=== PATIENT | male | born 1960 | race African-American/Black ===

== ENCOUNTER 2019-07-01 10:32 | Outpatient (CLI) | payer MEDICAID ==
[2019-07-01 12:29] LABS: BASOPHILS # (AUTO) 0.1 10^3/uL (0.0-0.1); BASOPHILS % (AUTO) 1.1 %; EOSINOPHILS # (AUTO) 0.3 10^3/uL (0.0-0.7); EOSINOPHILS % (AUTO) 4.7 %; HGB - HEMOGLOBIN 13.3 g/dL (14.0-18.0); LYMPHOCYTES % (AUTO) 27.6 %; MEAN CORPUSCULAR HEMOGLOBIN 32.7 pg (27.0-31.0); MEAN CORPUSCULAR HGB CONC 33.5 g/dL (32.0-36.0); MEAN CORPUSCULAR VOLUME 97.5 fL (80.0-94.0); MEAN PLATELET VOLUME 9.1 fL (7.4-11.4); MONOCYTES # (AUTO) 0.7 10^3/uL (0.0-1.0); MONOCYTES % (AUTO) 9.6 %; NEUTROPHILS # (AUTO) 4.1 10^3/uL (1.5-6.6); NEUTROPHILS % (AUTO) 56.7 %; PLT - PLATELET COUNT 251 10^3/uL (130-450); RED BLOOD COUNT 4.07 10^6/uL (4.70-6.10); WHITE BLOOD COUNT 7.2 x10^3/uL (4.8-10.8)
[2019-07-01 12:49] LABS: HB2 TOTAL 13.6 g/dL; HEMOGLOBIN A1C 0.57 g/dL
[2019-07-01 12:58] LABS: ALBUMIN 4.1 g/dL (3.2-5.5); ALBUMIN/GLOBULIN RATIO 1.1 (1.0-2.2); ALKALINE PHOSPHATASE 36 IU/L (42-121); ALT ALANINE AMINOTRANSFERASE 26 IU/L (10-60); AST ASPARTATE AMINOTRANSFERASE 34 IU/L (10-42); BILIRUBIN,TOTAL 1.1 mg/dL (0.2-1.0); BUN - BLOOD UREA NITROGEN 12 mg/dL (6-20); CALCIUM 9.1 mg/dL (8.5-10.3); CARBON DIOXIDE - CO2 27 mmol/L (21-32); CHLORIDE 103 mmol/L (101-111); CHOL/HDL RATIO 2.9 (<5.0); CHOLESTEROL 131 mg/dL; CREATININE 0.9 mg/dL (0.6-1.2); GFR - MDRD 104 (>89); GLUCOSE 120 mg/dL (70-100); HDL CHOLESTEROL 45 mg/dL; LDL CHOLESTEROL,CALCULATED 60 mg/dL; LDL/HDL RATIO 1.3 (<3.6); SODIUM 138 mmol/L (135-145); TOTAL PROTEIN 7.9 g/dL (6.7-8.2); VLDL CHOLESTEROL 26 mg/dL
== END 2019-07-01 23:59 | disposition home or self-care (01) ==
LOC: LAB.N 10:32
PROVIDERS: ATTEND Family Medicine
DX: I10 Essential (primary) hypertension (principal); Z13.1 Encounter for screening for diabetes mellitus; Z12.5 Encounter for screening for malignant neoplasm of prostate
CPT/HCPCS: 36415; 80053; 80061; 83036; 83721; 84153; 84443; 85025

== ENCOUNTER 2019-07-28 09:44 | Outpatient (CLI) | payer MEDICAID ==
[2019-07-28 12:34] LABS: ABSOLUTE RETICS # AUTO 0.091 10^6/uL (0.020-0.110); BASOPHILS # (AUTO) 0.1 10^3/uL (0.0-0.1); BASOPHILS % (AUTO) 0.9 %; EOSINOPHILS # (AUTO) 0.3 10^3/uL (0.0-0.7); EOSINOPHILS % (AUTO) 3.4 %; HGB - HEMOGLOBIN 14.1 g/dL (14.0-18.0); LYMPHOCYTES % (AUTO) 24.8 %; MEAN CORPUSCULAR HEMOGLOBIN 32.9 pg (27.0-31.0); MEAN CORPUSCULAR HGB CONC 33.6 g/dL (32.0-36.0); MEAN CORPUSCULAR VOLUME 97.9 fL (80.0-94.0); MEAN PLATELET VOLUME 9.2 fL (7.4-11.4); MONOCYTES # (AUTO) 0.6 10^3/uL (0.0-1.0); NEUTROPHILS % (AUTO) 62.6 %; PLT - PLATELET COUNT 265 10^3/uL (130-450); RED BLOOD COUNT 4.29 10^6/uL (4.70-6.10); RED CELL DISTRIBUTION WIDTH 13.6 % (12.0-15.0)
[2019-07-28 13:01] LABS: % IRON SATURATION 20 % (20-50); IRON 72 ug/dL (45-182); TOTAL IRON BINDING CAPACITY 351 ug/dL (250-450); TRANSFERRIN 251 mg/dL (180-329)
[2019-07-28 13:14] LABS: FERRITIN 125.2 ng/mL (23.9-336.2)
== END 2019-07-28 23:59 | disposition home or self-care (01) ==
LOC: LAB.N 09:44
PROVIDERS: ATTEND Family Medicine
DX: D64.9 Anemia, unspecified (principal)
CPT/HCPCS: 36415; 82607; 82728; 82746; 83540; 84466; 85025; 85045

== ENCOUNTER 2019-10-18 08:00 | Outpatient (CLI) | payer MEDICAID | END 2019-10-18 23:59 | disposition home or self-care (01) | LOC: LAB.R 08:00 | PROVIDERS: ATTEND Family Medicine | DX: J06.9 Acute upper respiratory infection, unspecified (principal) | CPT/HCPCS: 87275; 87276 ==

== ENCOUNTER 2019-12-06 12:40 | Outpatient (CLI) | payer MEDICAID ==
--- NOTE | 2019-12-06 14:39 | XRAY Report ---
Reason: KNEE JOINT PAIN,RIGHT Procedure Date: 12/06/2019 Accession Number: [id number] / [id number] Procedure: XR - Knee 3 View RT CPT Code: Final Report FULL RESULT: EXAM: RIGHT KNEE RADIOGRAPHY EXAM DATE: 12/06/2019 12:47 PM. CLINICAL HISTORY: Chronic progressive right knee joint pain. COMPARISON: None. TECHNIQUE: 3 views. FINDINGS: Bones: Normal bone mineralization. No fracture. Joints: Genu varum. Medial knee joint compartment narrowing with subchondral sclerosis and marginal osteophyte formation. Subchondral cyst formation is present as well. There is a moderate suprapatellar right knee joint effusion. No subluxation. Soft Tissues: Arteriosclerosis. No appreciable soft tissue swelling. IMPRESSION: 1. Moderate to severe medial knee joint compartment osteoarthritis with genu varum. 2. Moderate suprapatellar right knee joint osteoarthritis with a moderate suprapatellar right knee joint effusion. 3. Arteriosclerosis. RADIA
== END 2019-12-06 12:41 | disposition home or self-care (01) ==
LOC: DI 12:40
PROVIDERS: ATTEND Family Medicine
DX: M17.11 Unilateral primary osteoarthritis, right knee (principal); M25.461 Effusion, right knee; I70.90 Unspecified atherosclerosis

== ENCOUNTER 2020-02-24 15:38 | Outpatient (CLI) | payer MEDICAID ==
[2020-02-24 16:13] LABS: BASOPHILS # (AUTO) 0.1 10^3/uL (0.0-0.1); EOSINOPHILS # (AUTO) 0.4 10^3/uL (0.0-0.7); EOSINOPHILS % (AUTO) 3.9 %; HGB - HEMOGLOBIN 13.9 g/dL (14.0-18.0); LYMPHOCYTES # (AUTO) 2.4 10^3/uL (1.5-3.5); LYMPHOCYTES % (AUTO) 26.7 %; MEAN CORPUSCULAR HEMOGLOBIN 33.4 pg (27.0-31.0); MEAN CORPUSCULAR HGB CONC 34.3 g/dL (32.0-36.0); MEAN CORPUSCULAR VOLUME 97.4 fL (80.0-94.0); MEAN PLATELET VOLUME 8.8 fL (7.4-11.4); MONOCYTES # (AUTO) 0.9 10^3/uL (0.0-1.0); MONOCYTES % (AUTO) 9.4 %; NEUTROPHILS # (AUTO) 5.3 10^3/uL (1.5-6.6); NEUTROPHILS % (AUTO) 58.6 %; PLT - PLATELET COUNT 242 10^3/uL (130-450); RED BLOOD COUNT 4.16 10^6/uL (4.70-6.10); RED CELL DISTRIBUTION WIDTH 13.7 % (12.0-15.0)
[2020-02-24 16:26] LABS: ALBUMIN 4.3 g/dL (3.2-5.5); ALBUMIN/GLOBULIN RATIO 1.1 (1.0-2.2); ALKALINE PHOSPHATASE 39 IU/L (42-121); ALT ALANINE AMINOTRANSFERASE 25 IU/L (10-60); AST ASPARTATE AMINOTRANSFERASE 28 IU/L (10-42); BILIRUBIN,TOTAL 0.9 mg/dL (0.2-1.0); BUN - BLOOD UREA NITROGEN 19 mg/dL (6-20); CALCIUM 9.3 mg/dL (8.5-10.3); CARBON DIOXIDE - CO2 27 mmol/L (21-32); CHLORIDE 102 mmol/L (101-111); CHOL/HDL RATIO 3.3 (<5.0); CHOLESTEROL 156 mg/dL; CREATININE 1.1 mg/dL (0.6-1.2); GLUCOSE 109 mg/dL (70-100); HDL CHOLESTEROL 48 mg/dL; LDL CHOLESTEROL,CALCULATED 30 mg/dL; LDL/HDL RATIO 0.6 (<3.6); SODIUM 136 mmol/L (135-145); TOTAL PROTEIN 8.1 g/dL (6.7-8.2); VLDL CHOLESTEROL 78 mg/dL
[2020-02-24 16:28] LABS: CREATINE KINASE MB 9.8 ng/mL (0.6-6.3)
--- NOTE | 2020-02-26 02:51 | XRAY Report ---
Reason: CHEST PAIN Procedure Date: 02/24/2020 Accession Number: [id number] / [id number] Procedure: XR - Chest 2 View X-Ray CPT Code: 01453 Final Report FULL RESULT: EXAM: CHEST RADIOGRAPHY EXAM DATE: 02/24/2020 04:06 PM CLINICAL HISTORY: CHEST PAIN. COMPARISON: None. TECHNIQUE: 2 views. FINDINGS: Lungs/Pleura: Clear lungs. No pleural effusion. No pneumothorax. Mediastinum: Within exam limitations, the cardiomediastinal contour is unremarkable. Normal heart size. Mildly calcified thoracic aorta. Other: Right acromioclavicular arthropathy. IMPRESSION: Unremarkable 2-view chest radiography. RADIA
== END 2020-02-24 15:39 | disposition home or self-care (01) ==
LOC: DI 15:38
PROVIDERS: ATTEND Family Medicine
DX: R07.9 Chest pain, unspecified (principal)
CPT/HCPCS: 36415; 71046; 80053; 80061; 82553; 83721; 84443; 84484; 85025; 85379

== ENCOUNTER 2020-03-26 08:00 | Outpatient (CLI) | payer MEDICAID ==
[2020-03-26 18:01] LABS: HGB - HEMOGLOBIN 13.5 g/dL (14.0-18.0); MEAN CORPUSCULAR HEMOGLOBIN 33.4 pg (27.0-31.0); MEAN CORPUSCULAR HGB CONC 33.4 g/dL (32.0-36.0); MEAN PLATELET VOLUME 9.4 fL (7.4-11.4); RED BLOOD COUNT 4.04 10^6/uL (4.70-6.10); RED CELL DISTRIBUTION WIDTH 13.8 % (12.0-15.0); WHITE BLOOD COUNT 8.9 x10^3/uL (4.8-10.8)
[2020-03-26 18:19] LABS: CALCIUM 8.8 mg/dL (8.5-10.3)
== END 2020-03-26 23:59 | disposition home or self-care (01) ==
LOC: LAB.WCP 08:00
PROVIDERS: ATTEND Family Medicine
DX: R07.9 Chest pain, unspecified (principal)
CPT/HCPCS: 36415; 80048; 83880; 85027

== ENCOUNTER 2020-05-30 08:00 | Outpatient (CLI) | payer MEDICAID ==
[2020-05-30 18:56] LABS: BASOPHILS # (AUTO) 0.1 10^3/uL (0.0-0.1); BASOPHILS % (AUTO) 0.8 %; EOSINOPHILS # (AUTO) 0.2 10^3/uL (0.0-0.7); EOSINOPHILS % (AUTO) 2.4 %; HGB - HEMOGLOBIN 13.8 g/dL (14.0-18.0); LYMPHOCYTES # (AUTO) 2.3 10^3/uL (1.5-3.5); LYMPHOCYTES % (AUTO) 24.5 %; MEAN CORPUSCULAR HEMOGLOBIN 32.8 pg (27.0-31.0); MEAN CORPUSCULAR HGB CONC 32.9 g/dL (32.0-36.0); MEAN CORPUSCULAR VOLUME 99.8 fL (80.0-94.0); MEAN PLATELET VOLUME 9.5 fL (7.4-11.4); MONOCYTES # (AUTO) 0.8 10^3/uL (0.0-1.0); MONOCYTES % (AUTO) 8.4 %; NEUTROPHILS # (AUTO) 5.9 10^3/uL (1.5-6.6); NEUTROPHILS % (AUTO) 63.4 %; PLT - PLATELET COUNT 238 10^3/uL (130-450); RED BLOOD COUNT 4.21 10^6/uL (4.70-6.10); RED CELL DISTRIBUTION WIDTH 14.6 % (12.0-15.0); WHITE BLOOD COUNT 9.2 x10^3/uL (4.8-10.8)
[2020-05-30 19:04] LABS: ALBUMIN 4.4 g/dL (3.2-5.5); ALBUMIN/GLOBULIN RATIO 1.2 (1.0-2.2); BILIRUBIN,TOTAL 0.6 mg/dL (0.2-1.0); CALCIUM 9.4 mg/dL (8.5-10.3); TOTAL PROTEIN 8.1 g/dL (6.7-8.2)
== END 2020-05-30 23:59 | disposition home or self-care (01) ==
LOC: LAB.WCP 08:00
PROVIDERS: ATTEND Nurse Practitioner Family
DX: R06.09 Other forms of dyspnea (principal)
CPT/HCPCS: 36415; 80053; 83880; 85025

== ENCOUNTER 2020-05-30 11:49 | Outpatient (CLI) | payer MEDICAID ==
--- NOTE | 2020-05-30 16:33 | XRAY Report ---
PROCEDURE: Chest 2 View X-Ray INDICATIONS: EXERTIONAL SHORTNESS OF BREATH TECHNIQUE: 2 view(s) of the chest. COMPARISON: 02/24/2020. FINDINGS: Surgical changes and devices: None. Lungs and pleura: No pleural effusions or pneumothorax. Lungs are clear. Mediastinum: Mediastinal contours are normal. Heart size is normal. Bones and chest wall: No suspicious bony abnormalities. Thoracic spine degenerative disc disease. So ft tissues appear unremarkable. IMPRESSION: No acute cardiopulmonary disease process. Reviewed by: Joyce Gómez MD, PhD on 05/30/2020 3:53 PM PDT Approved by: Joyce Gómez MD, PhD on 05/30/2020 3:53 PM PDT Station ID: [id number]
== END 2020-05-30 11:50 | disposition home or self-care (01) ==
LOC: DI.WCP 11:49
PROVIDERS: ATTEND Nurse Practitioner Family
DX: R06.02 Shortness of breath (principal)
CPT/HCPCS: 71046

== ENCOUNTER 2020-06-13 09:53 | Outpatient (CLI) | payer MEDICAID | END 2020-06-13 09:54 | disposition home or self-care (01) | LOC: RT 09:53 | PROVIDERS: ATTEND Nurse Practitioner Family | DX: R06.09 Other forms of dyspnea (principal); R06.2 Wheezing | CPT/HCPCS: 94010 ==

== ENCOUNTER 2020-06-20 14:14 | Outpatient (CLI) | payer MEDICAID ==
[2020-06-20 15:26] VITALS: BP 133/90
--- NOTE | 2020-06-20 15:26 | SLEEP CARE CONSULTATION ---
Information from patient questionnaire entered by Janki Atwood. I have reviewed and concur with the information entered by Janki Atwood. This document represents the service I personally performed and the decisions made by me, Aliza Carrasco ARNP. History of Present Illness Service Date and Time: 06/20/2020 1414 Reason for Visit: New patient Chief Complaint: reports: Snoring, Excessive daytime sleepiness, Observed pauses in breathing (ex- noted), Frequent awakenings at night. denies: Insomnia, Unrefreshed sleep, Fatigue Date of Onset: A few months Usual bedtime: 11 pm Time it takes to fall asleep: right away Snores at night: Yes Observed to quit breathing while asleep: Yes Sleeps alone due to snoring: Yes Number of times waking at night: every hour Reasons for waking at night: reports: Choking (has acid reflux), Bathroom. denies: Snoring, Gasping for air Toss, Turn, or Twitch while sleeping: Yes Recalls having dreams: No Usually gets out of bed at: 6-8 am Feels refreshed in the morning: Yes Morning headache: No Sleepy or fatigued during the day: Yes Ever fallen asleep while driving: No (drowsy driving on long trips) Takes day naps: Yes (3-4 times a week, last about an hour) Dreams during day naps: Yes Prior sleep studies: No Additional HPI information: I had the pleasure of seeing MARITO EDGE today regarding the possibility of him having a sleep disorder. His current complaints are excessive daytime sleepiness and observed pauses in breathing during sleep. He saw his doctor 2 weeks ago who recommended he be evaluated. He has snored for a long time and his ex- told him he stopped breathing at night. He takes nap intermittently during the week when he can, especially in the afternoon. He has had drowsy driving for long trips even when he felt fine before getting in the car. He has a history of prostate issues, hypertension, high cholesterol and GERD. - Parasomnia Symptoms Ever been unable to move upon waking from sleep: No Walks in sleep: No Talks in sleep: No Ever acted out dreams in sleep: No Ever felt weak in the knees when startled or emotional: No Bothered by creepy, crawly, restless sensations in legs: No Problems with memory or concentration: Yes (memory, lost keys yesterday and forgot where they went) Subjective Initial [place] Sleepiness Scale score: 7 (in 2020) Past Medical History Past Medical History: reports: Hypertension, Claustrophobia, Arthritis, Coronary Heart Disease (stent in 2017), GERD, Other (high cholesterol). denies: Congestive Heart Failure, Diabetes, Arrythmia, Hypothyroidism, Anemia, Anxiety, Impotence, Depression, Mood disorder, Attention deficit Social History The patient's occupation is a Not employed. Patient is Legally and lives in [place]. Have you smoked in the past 12 months: Yes Cigarettes per day (20/pack): 5 Years of smokin Smoking Pack Years: 4.0 Alcohol use: Yes Alcohol amount and frequency: daily, 2 large cans Caffeine use: Yes Caffeine amount and frequency: 1 cup of tea daily Family History Family history of sleep disordered breathing: No Allergies and Home Medications Drug allergies reviewed: Yes (linsinopril) Home medication list reviewed: Yes ((did not bring in list, cannot remember names)) Review of Systems Weight gain over past 5 years: 30 Cardiovascular: reports: high blood pressure. denies: palpitations, chest pain, irregular heart rate or pulse, leg or foot swelling Respiratory: reports: wheeze. denies: shortness of breath, chronic cough Gastrointestinal: denies: heartburn, difficulty swallowing Urinary: reports: frequency, impotence Neurological: reports: speech dysfunction. denies: headaches, seizure, head trauma, gait or balance problems Psychiatric: denies: anxiety, depression Ear/Nose/Throat: reports: dry mouth/throat (due to prostate pill). denies: nasal congestion, sinus problems, nose bleeds, injury to nose, tonsillectomy Endocrine: reports: sluggishness, increased urination. denies: thyroid disease Immunologic: reports: other (some meds). denies: allergies to food or environment Physical Exam Blood Pressure: 133/90 Cuff size: long Heart Rate: 75 O2 Saturation: 96 Height: 5 ft 6 in Weight: 257 lb Body Mass Index: 41.4 BMI Classification: Morbidly Obese Neck circumference: 18.75 (inches) HEENT: No craniofacial malformation Nostrils: patent to airflow Turbinates: normal Septum: midline Mouth and throat: narrow oropharynx Soft palate: normal Hard palate: normal Uvula: long, edematous Uvula visualization: 100% Mallampati Class I Tongue: normal in size Tonsils: 2+ Chin and jaw: normal size and position Neck: normal w/o lymphadenopathy or thyromegaly Heart: regular rate and rhythm Lungs: clear bilaterally Impression and Plan 1. Suspected Obstructive Sleep Apnea-Hypopnea Syndrome, as suggested by a history of loud and irregular snoring, observed cessation of breath while asleep, frequent awakening during the night, cognitive impairment, and excessive daytime sleepiness. Narrow oropharynx and obesity are common predisposing factors for obstructive sleep apnea-hypopnea syndrome. He has a history of hypertension, high cholesterol and GERD. I recommend proceeding to polysomnography to confirm the diagnosis and to assess severity. If the patient has significant sleep disordered breathing, a manual CPAP titration study will also be performed to find the optimal treatment pressure. I informed the patient of what the sleep studies involve and after some discussion, obtained agreement to proceed. The pathophysiology of obstructive sleep apnea-hypopnea syndrome was discussed with the patient and health risks of cardiovascular and cerebrovascular disease if not treated. [facility] brochure for obstructive sleep apnea-hypopnea syndrome given and reviewed. Risks of drowsy driving discussed in detail and patient advised to avoid long distance driving and to last puller at the first sign of drowsiness. Patient agreed to plan. [facility] drowsy driving brochure given. * Schedule polysomnography +- manual CPAP titration study. * Avoid long distance driving or driving when feeling sleepy. * Avoid alcohol, sedative and muscle relaxant around bedtime. * Attempt to lose weight. * Review instructions provided by trained office staff on how to prepare for the sleep study. * Return for follow-up after sleep study completed. Time Spent with Patient (minutes): 35
== END 2020-06-20 14:15 | disposition home or self-care (01) ==
LOC: SC 14:14
PROVIDERS: ATTEND Nurse Practitioner Family
DX: G47.10 Hypersomnia, unspecified (principal); R06.81 Apnea, not elsewhere classified; R06.83 Snoring; E66.01 Morbid (severe) obesity due to excess calories; Z68.41 Body mass index [BMI] 40.0-44.9, adult; F17.210 Nicotine dependence, cigarettes, uncomplicated; I11.9 Hypertensive heart disease without heart failure; I25.10 Atherosclerotic heart disease of native coronary artery without angina pectoris
CPT/HCPCS: 99204; 99212

== ENCOUNTER 2020-07-20 19:30 | Outpatient (CLI) | payer MEDICAID | END 2020-07-20 23:59 | disposition home or self-care (01) | LOC: SC 19:30 | PROVIDERS: ATTEND Nurse Practitioner Family | DX: G47.33 Obstructive sleep apnea (adult) (pediatric) (principal); R00.1 Bradycardia, unspecified; E66.01 Morbid (severe) obesity due to excess calories; Z68.41 Body mass index [BMI] 40.0-44.9, adult | CPT/HCPCS: 95806 ==

== ENCOUNTER 2020-07-31 13:59 | Outpatient (CLI) | payer MEDICAID ==
--- NOTE | 2020-07-31 14:32 | SLEEP CARE CONSULTATION ---
Information from patient questionnaire entered by Janki Atwood. I have reviewed and concur with the information entered by Janki Atwood. This document represents the service I personally performed and the decisions made by , Aliza Carrasco ARNP. History of Present Illness Service Date and Time: 07/31/2020 1359 Initial [place] Sleepiness Scale score: 7 (in 2019) Current [place] Sleepiness Scale score: 15 Additional HPI information: MARITO EDGE returns for follow up and results of the recently performed home sleep study. I explained the pathophysiology behind obstructive sleep apnea. We then spent quite a bit of time discussing different treatment options. For mild obstructive sleep apnea, surgery and oral appliance are alternatives to nasal CPAP therapy but in moderate or severe cases, nasal CPAP is the most effective and reliable treatment. After some discussion, the patient opted to go with the nasal CPAP therapy. Nasal autoCPAP set at 4-15 cmH20 will be ordered with rationale explained. A manual titration study will be ordered if unable to find optimal pressure with office adjustments. I explained how CPAP machine works with sample devices [employer] Dreamstation and [employer] [id number] and what to expect when using the machine. Using CPAP every night in order to get used to it was emphasized. Patient advised to put CPAP mask on before getting into bed so as not to fall asleep without CPAP. To assist acclimation to CPAP use, it could also be used for a short time during day while reading or watching TV. The patient was instructed to call the CPAP supplier to discuss any mechanical problem that may occur. If the mask given is uncomfortable or is difficult to keep on through the night even with adjustment, contact the CPAP supplier as many will replace with another mask style if notified before 30 days. If snoring or perceives is not getting enough air or too much air from the machine, notify this office. Patient counseled not drink alcohol less than 4 hours before bedtime as it can increase snoring and apnea. Patient was cautioned about r isks of drowsy driving until sleepiness symptoms resolve. Sleep Study - Results Type of Sleep Study: Home sleep study Prior sleep studies: No Polysomnography/Home Sleep Study results: SLEEP TIME AND EFFICIENCY: The sleep study recording began at 10:57:07 PM and ended at 06:37:20 AM. Total recording time was 460.2 minutes. The total sleep time was 439.0 minutes. The sleep efficiency was 95.4 percent. The patient spent 422.0 minutes supine, and spent 17.0 minutes non-supine. The patients own estimate of sleep time was 7.70 hours. RESPIRATORY DATA: The AHI in this report is indexed to sleep time based on actigraphy. The AASM defines this as MARÍA. The AHI on this type 3 Home Sleep Study may understate the AHI determined on a type 1 or 2 study, since EEG is not monitored resulting in the inability to score non-desaturating hypopneas. Based on 4% Calculation: The AHI4% calculation of 53.2 per hour of recording time was based on a total of 318 scored apneas and 71 scored hypopneas with 4% desaturations. Supine AHI4%: 54.5 per hour. Non-supine AHI4%: 21.1 per hour. Oxygen Summary: Patient's baseline O2 saturation was 91.5 %. The patient spent 157.1 minutes at an oxygen saturation less than 90%, and 44.1 minutes less than 85%. The desaturation index was 55.1 events per hour sleep time. The lowest saturation was 58.6 %. SNORING: The percent of the study time spent snoring was 0.0 %. The Snoring Count was 3 . The Snoring Index was 0.4 . PULSE RATE REVIEW: The mean heart rate was 72 beats per minute. The rate ranged from a low of 28 to a high of 102 beats per minute. DIAGNOSIS CODE: Severe obstructive sleep apnea G47.33 with severe hypoxia. The respiratory events occurred independently of sleep position. Bradycardia. Severe desaturations were noted. Allergies and Home Medications Drug allergies reviewed: Yes (-prils) Home medication list reviewed: Yes (2 new ones for swelling in legs) Review of Systems Review of systems same as previous: Yes (no changes) Physical Exam Heart Rate: 81 O2 Saturation: 96 Height: 5 ft 6 in Weight: 261 lb Body Mass Index: 42.1 BMI Classification: Morbidly Obese Impression and Plan 1. Obstructive Sleep Apnea-Hypopnea Syndrome, severe, with lowest oxygen saturation of 58.6%. Obviously this is the cause of the patients symptoms of unrefreshed sleep, and excessive daytime sleepiness. Positive pressure therapy could benefit his hypertension, coronary heart disease and GERD. As mentioned above, the patient will be started on nasal autoCPAP therapy with pressure set at 4-15 cmH2O. A manual titration study will be completed if unable to find optimal treatment pressure with office adjustments. Compliance guidelines also reviewed. A copy of compliance guidelines will be given for reference at check out. Because the apnea is more severe supine, I instructed to avoid sleeping supine using pillow positioning until able to start CPAP use. * Nasal auto CPAP therapy, pressure at 4-15 cm H2O. * Attempt to lose weight. * Avoid alcohol consumption near bedtime. * Avoid supine sleep until using CPAP. * The patient is again cautioned about driving until sleepiness completely resolves. * Return one month after CPAP obtained. I will assess response to therapy and compliance at that time. Counseling Topics: Sleeping position, Weight loss health impact, Smoking cessation Visit Type: In Office Time Spent with Patient (minutes): 21 Provider Statement: I spent 100% of the Face to Face Visit with the patient with greater than 50% spent counseling the patient and coordination of care.
== END 2020-07-31 14:00 | disposition home or self-care (01) ==
LOC: SC 13:59
PROVIDERS: ATTEND Nurse Practitioner Family
DX: G47.33 Obstructive sleep apnea (adult) (pediatric) (principal); E66.01 Morbid (severe) obesity due to excess calories; Z68.41 Body mass index [BMI] 40.0-44.9, adult
CPT/HCPCS: 99212; 99213

== ENCOUNTER 2020-09-25 09:14 | Outpatient (CLI) | payer MEDICAID ==
--- NOTE | 2020-09-25 09:43 | SLEEP CARE CONSULTATION ---
Information from patient questionnaire entered by Janki Atwood. I have reviewed and concur with the information entered by Janki Atwood. This document represents the service I personally performed and the decisions made by , Aliza Carrasco ARNP. History of Present Illness Service Date and Time: 09/25/2020913 Previous diagnosis: Severe, Obstructive Sleep Apnea-Hypopnea Syndrome AHI: 53.2 (in 2019) Reason for follow up: first compliance Equipment type: CPAP Equipment obtained from: Other ([facility]; no new supplies yet) Mask style: Full face Backup mask available: No (will keep mask when replaced ) Last cushion change: 6 weeks Prior sleep studies: Yes Year and Where: 2019 - [facility] Type of Sleep Study: Polysomnography HPI additional information: MARITO EDGE was diagnosed to have severe, AHI 53.2, obstructive sleep apnea- hypopnea syndrome and returned today for CPAP therapy first compliance follow- up. CPAP Compliance Data - Data Reviewed with Patient Average duration of nightly device use: 6 hr 7 min Compliance rate %: 70 (initial 30 days)(63 last 30) Current pressure setting (cmH2O): 4-15 Humidity settin Average residual AHI: 4.1 Central apnea: 0.1 Obstructive apnea: 2.4 Subjective Missed days of use due to: reports: travel Patient concerns: reports: air blowing in eyes (adjusting mask stops it), dry mouth, nose, throat (dry mouth sometimes). denies: aerophagia, mask discomfort, mask leak noise, condensation in mask/hose, nasal congestion, epistaxis, other Observed to snore while using device: No Current pressure setting perceived as: too low (at the beginning of night last night, air hunger) On therapy, patient: reports: sleeping better, awakening more refreshed, being more awake and alert during the day, more rested overall, drowsiness while driving (just a little still, is improved from before) Initial [place] Sleepiness Scale score: 7 (in 2019) Current [place] Sleepiness Scale score: 15 Allergies and Home Medications Drug allergies reviewed: Yes (lisinopril) Home medication list reviewed: Yes (new blood pressure medication, unsure of name) Review of Systems Review of systems same as previous: Yes (no changes) Physical Exam Heart Rate: 68 O2 Saturation: 97 Height: 5 ft 6 in Weight: 260 lb Body Mass Index: 41.9 BMI Classification: Morbidly Obese Impression and Plan 1. Obstructive Sleep Apnea-Hypopnea Syndrome, severe, with fair treatment compliance and fair apnea control. On CPAP therapy, the patient has better sleep quality and is more rested overall. His median pressure is 10.0 cm H2O, his 95% pressure is 11.9 cm H2O and his max pressure was 12.8 cm H2O. Thus, I will adjust his pressure to 10-13 cm H2O. He is having occasional oral dryness. Oral dryness can be reduced by adjusting humidity setting higher or heated hose lower or by adjusting both settings. Oral instructions given on how to change humidity and heated hose settings with rationale explaining why to change. Patient's apnea severity and rationale for treatment to reduce apnea, improve sleep quality and reduce cardiovascular and cerebrovascular events was reviewed. I also reviewed the benefit of consistent device use of CPAP for hypertension, cardiac disease, and gastric reflux. * Changeauto CPAP pressure to 10-13 cmH2O * Notify me if snoring with mask or feeling that the pressure is too much or too little * Attempt to lose weight * Call this office if any problems using CPAP * Return for follow up in 1-2 months , or sooner if concerns arise Counseling Topics: Spare mask, Weight loss health impact Visit Type: In Office Time Spent with Patient (minutes): 22 Provider Statement: I spent 100% of the Face to Face Visit with the patient with greater than 50% spent counseling the patient and coordination of care.
== END 2020-09-25 09:15 | disposition home or self-care (01) ==
LOC: SC 09:14
PROVIDERS: ATTEND Nurse Practitioner Family
DX: G47.33 Obstructive sleep apnea (adult) (pediatric) (principal); E66.01 Morbid (severe) obesity due to excess calories; Z68.41 Body mass index [BMI] 40.0-44.9, adult
CPT/HCPCS: 99212; 99213

== ENCOUNTER 2020-11-01 10:14 | Outpatient (CLI) | payer MEDICAID ==
--- NOTE | 2020-11-01 11:01 | SLEEP CARE CONSULTATION ---
Information from patient questionnaire entered by Janki Atwood. I have reviewed and concur with the information entered by Janki Atwood. This document represents the service I personally performed and the decisions made by , Aliza Carrasco ARNP. History of Present Illness Service Date and Time: 11/01/2020 1014 Previous diagnosis: Severe, Obstructive Sleep Apnea-Hypopnea Syndrome AHI: 53.2 (in 2019) Reason for follow up: one month (with pressure change) Equipment type: CPAP Equipment obtained from: Other ([facility]; no new supplies yet) Mask style: Full face Backup mask available: No (will keep old mask once this is replaced) Prior sleep studies: Yes Year and Where: 2019 - [facility] Sleep Type of Sleep Study: Home sleep study HPI additional information: MARITO EDGE was diagnosed to have severe, AHI 53.2, obstructive sleep apnea- hypopnea syndrome and returned today for CPAP therapy one month pressure change follow-up. CPAP Compliance Data - Data Reviewed with Patient Average duration of nightly device use: 5 hr 54 min Compliance rate %: 67 Current pressure setting (cmH2O): 10-13 Humidity settin Average residual AHI: 3.2 Subjective Missed days of use due to: reports: family emergency (having to go check on exwife and sometimes stays night without CPAP) Patient concerns: reports: air blowing in eyes, mask leak noise (mask not sealing well, needs new cushion/mask replacement), dry mouth, nose, throat. denies: aerophagia, mask discomfort, condensation in mask/hose, nasal congestion, epistaxis, other Observed to snore while using device: No Current pressure setting perceived as: comfortable On therapy, patient: reports: sleeping better, awakening more refreshed, being more awake and alert during the day, more rested overall. denies: drowsiness while driving Initial [place] Sleepiness Scale score: 7 (in 2020) Current [place] Sleepiness Scale score: 7 Allergies and Home Medications Drug allergies reviewed: Yes (-prils) Home medication list reviewed: Yes Allergy and home medication list: prazosin metoprolol bid losartan omeprazole atorvastatin amlodipine (new medication) finasteride losartan aspirin, every other day nitroglycerin potassium chloride, take with furosemide furosemide isosorbide mononitrate ER D3 Review of Systems Review of systems same as previous: Yes (no changes) Physical Exam Heart Rate: 77 O2 Saturation: 97 Height: 5 ft 6 in Weight: 254 lb Body Mass Index: 41.0 BMI Classification: Morbidly Obese Impression and Plan 1. Obstructive Sleep Apnea-Hypopnea Syndrome, severe, with fair treatment compliance and good apnea control. On CPAP therapy, the patient has better sleep quality and is more rested overall. His original mask is what he continues to use and he is having a lot of air leaking around the cushion, some getting into his eyes. He states he is not eligible to get another mask yet but has to hold it on his face at the beginning of the night to get it to seal. He also has some dry mouth in the mornings. I advised him to recheck with his DME when he can get his replacement mask, which may be this month, and he voiced understanding. He was also encouraged to increase his humidity setting. It is currently at 4 and he may go up to reduce oral dryness by adjusting humidity setting higher or heated hose lower or by adjusting both settings. Discharge processing clerk will go over how to adjust settings with patient upon discharge. I will adjust pressure to reflect current use and have him return in 1-2 months to recheck compliance and response to therapy. Patient also encouraged to lose weight. Patient's apnea severity and rationale for treatment to reduce apnea, improve sleep quality and reduce cardiovascular and cerebrovascular events was reviewed. I also reviewed the benefit of consistent device use of CPAP for hypertension, cardiac disease, and gastric reflux. * Change auto CPAP pressure to 11-14 cmH2O * Notify me if snoring with mask or feeling that the pressure is too much or too little * Attempt to lose weight * Call this office if any problems using CPAP * Return for follow up in 1-2 months, or sooner if concerns arise Counseling Topics: Spare mask, Weight loss health impact Visit Type: In Office Time Spent with Patient (minutes): 25 Provider Statement: I spent 100% of the Face to Face Visit with the patient with greater than 50% spent counseling the patient and coordination of care.
== END 2020-11-01 10:15 | disposition home or self-care (01) ==
LOC: SC 10:14
PROVIDERS: ATTEND Nurse Practitioner Family
DX: G47.33 Obstructive sleep apnea (adult) (pediatric) (principal); E66.01 Morbid (severe) obesity due to excess calories; Z68.41 Body mass index [BMI] 40.0-44.9, adult
CPT/HCPCS: 99212; 99213

== ENCOUNTER 2020-12-04 08:00 | Outpatient (CLI) | payer MEDICAID ==
[2020-12-04 12:15] LABS: BASOPHILS # (AUTO) 0.1 10^3/uL (0.0-0.1); BASOPHILS % (AUTO) 0.7 %; EOSINOPHILS # (AUTO) 0.3 10^3/uL (0.0-0.7); EOSINOPHILS % (AUTO) 3.6 %; HGB - HEMOGLOBIN 12.7 g/dL (14.0-18.0); LYMPHOCYTES # (AUTO) 2.4 10^3/uL (1.5-3.5); LYMPHOCYTES % (AUTO) 26.5 %; MEAN CORPUSCULAR HGB CONC 33.2 g/dL (32.0-36.0); MEAN CORPUSCULAR VOLUME 99.5 fL (80.0-94.0); MEAN PLATELET VOLUME 9.2 fL (7.4-11.4); MONOCYTES # (AUTO) 0.9 10^3/uL (0.0-1.0); MONOCYTES % (AUTO) 9.6 %; NEUTROPHILS # (AUTO) 5.4 10^3/uL (1.5-6.6); NEUTROPHILS % (AUTO) 59.2 %; PLT - PLATELET COUNT 237 10^3/uL (130-450); RED BLOOD COUNT 3.85 10^6/uL (4.70-6.10); RED CELL DISTRIBUTION WIDTH 14.5 % (12.0-15.0); WHITE BLOOD COUNT 9.1 x10^3/uL (4.8-10.8)
[2020-12-04 12:20] LABS: CHOL/HDL RATIO 3.6 (<5.0); CHOLESTEROL 162 mg/dL; HDL CHOLESTEROL 45 mg/dL; LDL CHOLESTEROL,CALCULATED 58 mg/dL; LDL/HDL RATIO 1.3 (<3.6); VLDL CHOLESTEROL 59 mg/dL
[2020-12-04 12:34] LABS: ALBUMIN 3.8 g/dL (3.2-5.5); BILIRUBIN,TOTAL 0.8 mg/dL (0.2-1.0); CALCIUM 9.5 mg/dL (8.5-10.3); CREATININE 1.3 mg/dL (0.6-1.2); TOTAL PROTEIN 7.8 g/dL (6.7-8.2); URIC ACID 8.3 mg/dL (2.6-7.2)
== END 2020-12-04 23:59 | disposition home or self-care (01) ==
LOC: LAB.WCP 08:00
PROVIDERS: ATTEND Family Medicine
DX: L60.0 Ingrowing nail (principal); I10 Essential (primary) hypertension; B35.1 Tinea unguium
CPT/HCPCS: 36415; 80053; 80061; 83721; 84550; 85025

== ENCOUNTER 2020-12-06 10:44 | Outpatient (CLI) | payer MEDICAID ==
--- NOTE | 2020-12-06 11:11 | SLEEP CARE CONSULTATION ---
Information from patient questionnaire entered by Janki Atwood. I have reviewed and concur with the information entered by Janki Atwood. This document represents the service I personally performed and the decisions made by , Aliza Carrasco ARNP. History of Present Illness Service Date and Time: 12/06/2020 1044 Previous diagnosis: Severe, Obstructive Sleep Apnea-Hypopnea Syndrome AHI: 53.2 (in 2019) Reason for follow up: one month (with pressure change) Equipment type: CPAP Equipment obtained from: Other ([facility]; getting supplies) Mask style: Full face Backup mask available: Yes (other mask) Last cushion change: 3 weeks Prior sleep studies: Yes Year and Where: 2019 - [facility] Type of Sleep Study: Home sleep study HPI additional information: MARITO EDGE was diagnosed to have severe, AHI 53.2, obstructive sleep apnea- hypopnea syndrome and returned today for CPAP therapy one month pressure change follow-up. CPAP Compliance Data - Data Reviewed with Patient Average duration of nightly device use: 5 hr 37 min Compliance rate %: 73 Current pressure setting (cmH2O): 11-14 Humidity settin Average residual AHI: 2.9 Subjective Missed days of use due to: reports: other (Go to sleep before) Patient concerns: reports: condensation in mask/hose (3 days a week, getting in mask), dry mouth, nose, throat. denies: aerophagia, mask discomfort, air blowing in eyes, mask leak noise, nasal congestion, epistaxis, other Observed to snore while using device: No Current pressure setting perceived as: comfortable On therapy, patient: reports: sleeping better, awakening more refreshed, being more awake and alert during the day, more rested overall, drowsiness while driving (sometimes) Initial [place] Sleepiness Scale score: 7 (in 2020) Current [place] Sleepiness Scale score: 11 Allergies and Home Medications Drug allergies reviewed: Yes (lisinopril) Home medication list reviewed: Yes (new heart medication, 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 Obstructive Sleep Apnea-Hypopnea Syndrome, severe, with fair treatment compliance and good apnea control. On CPAP therapy, the patient has better sleep quality and is more rested overall. He is still having times of drowsiness when driving. He is only getting 5 hours 37 minutes average of sleep in mask. I reviewed with patient that we need 7-9 hours of restful sleep for the best benefit of CPAP therapy. He voiced understanding. He has also has some condensation in the mask a few nights a week and some occasional mouth dryness. Oral dryness can be reduced by adjusting humidity setting higher or heated hose lower or by adjusting both settings. Verbal instructions given by office staff on how to change humidity and heated hose settings. Patient's apnea severity and rationale for treatment to reduce apnea, improve sleep quality and reduce cardiovascular and cerebrovascular events was reviewed. I also reviewed the benefit of consistent device use of CPAP for hypertension, cardiac disease, and gastric reflux. * Continue autoCPAP pressure at 11-14 cmH2O * Notify me if snoring with mask or feeling that the pressure is too much or too little * Attempt to lose weight * Call this office if any problems using CPAP * Return for follow up in 3 months, or sooner if concerns arise Counseling Topics: Spare mask, Weight loss health impact Visit Type: In Office Time Spent with Patient (minutes): 20 Provider Statement: I spent 100% of the Face to Face Visit with the patient with greater than 50% spent counseling the patient and coordination of care.
== END 2020-12-06 10:45 | disposition home or self-care (01) ==
LOC: SC 10:44
PROVIDERS: ATTEND Nurse Practitioner Family
DX: G47.33 Obstructive sleep apnea (adult) (pediatric) (principal); E66.01 Morbid (severe) obesity due to excess calories; Z68.41 Body mass index [BMI] 40.0-44.9, adult
CPT/HCPCS: 99212; 99213

== ENCOUNTER 2020-12-28 13:31 | Outpatient (CLI) | payer MEDICAID ==
--- NOTE | 2020-12-28 15:13 | XRAY Report ---
PROCEDURE: Chest 2 View X-Ray INDICATIONS: SHORTNESS OF BREATH TECHNIQUE: 2 view(s) of the chest. COMPARISON: Chest x-ray 05/30/2020 FINDINGS: Surgical changes and devices: None. Lungs and pleura: No pleural effusions or pneumothorax. Lungs are clear. Mediastinum: Mediastinal contours are normal. Heart size is enlarged. Bones and chest wall: No suspicious bony abnormalities. Soft tissues appear unremarkable. IMPRESSION: No acute pulmonary process. Reviewed by: Lindsay Saenz MD on 12/28/2020 3:12 PM PST Approved by: Lindsay Saenz MD on 12/28/2020 3:12 PM [facility] Station ID: [id number]
== END 2020-12-28 13:32 | disposition home or self-care (01) ==
LOC: DI.N 13:31
PROVIDERS: ATTEND Nurse Practitioner
DX: R06.02 Shortness of breath (principal); Z20.822 Contact with and (suspected) exposure to COVID-19
CPT/HCPCS: 36415; 80048; 83880; 85025; 85027

== ENCOUNTER 2020-12-28 14:39 | Outpatient (CLI) | payer MEDICAID ==
[2020-12-28 18:14] LABS: HCT - HEMATOCRIT 34.4 % (42.0-52.0); HGB - HEMOGLOBIN 11.6 g/dL (14.0-18.0); MEAN CORPUSCULAR HEMOGLOBIN 33.6 pg (27.0-31.0); MEAN CORPUSCULAR HGB CONC 33.7 g/dL (32.0-36.0); MEAN CORPUSCULAR VOLUME 99.7 fL (80.0-94.0); MEAN PLATELET VOLUME 9.5 fL (7.4-11.4); RED BLOOD COUNT 3.45 10^6/uL (4.70-6.10); RED CELL DISTRIBUTION WIDTH 14.5 % (12.0-15.0); WHITE BLOOD COUNT 9.5 x10^3/uL (4.8-10.8)
[2020-12-28 18:32] LABS: CALCIUM 8.6 mg/dL (8.5-10.3); CREATININE 1.4 mg/dL (0.6-1.2); POTASSIUM 3.4 mmol/L (3.5-5.0)
== END 2020-12-28 14:40 | disposition home or self-care (01) ==
LOC: LAB.N 14:39
PROVIDERS: ATTEND Nurse Practitioner
DX: R06.02 Shortness of breath (principal); Z20.822 Contact with and (suspected) exposure to COVID-19
CPT/HCPCS: 36415; 80048; 83880; 85025; 85027

== ENCOUNTER 2021-02-11 08:00 | Outpatient (CLI) | payer MEDICAID ==
[2021-02-11 13:45] LABS: BASOPHILS # (AUTO) 0.1 10^3/uL (0.0-0.1); BASOPHILS % (AUTO) 0.8 %; EOSINOPHILS # (AUTO) 0.3 10^3/uL (0.0-0.7); EOSINOPHILS % (AUTO) 3.2 %; HGB - HEMOGLOBIN 12.2 g/dL (14.0-18.0); LYMPHOCYTES # (AUTO) 2.6 10^3/uL (1.5-3.5); LYMPHOCYTES % (AUTO) 27.8 %; MEAN CORPUSCULAR HEMOGLOBIN 33.2 pg (27.0-31.0); MEAN CORPUSCULAR VOLUME 100.8 fL (80.0-94.0); MEAN PLATELET VOLUME 9.6 fL (7.4-11.4); MONOCYTES # (AUTO) 0.9 10^3/uL (0.0-1.0); MONOCYTES % (AUTO) 9.2 %; NEUTROPHILS # (AUTO) 5.4 10^3/uL (1.5-6.6); NEUTROPHILS % (AUTO) 58.4 %; PLT - PLATELET COUNT 236 10^3/uL (130-450); RED BLOOD COUNT 3.67 10^6/uL (4.70-6.10); RED CELL DISTRIBUTION WIDTH 14.3 % (12.0-15.0); WHITE BLOOD COUNT 9.3 x10^3/uL (4.8-10.8)
[2021-02-11 14:14] LABS: % IRON SATURATION 19 % (20-50); ALBUMIN 4.1 g/dL (3.2-5.5); ALKALINE PHOSPHATASE 36 IU/L (42-121); ALT ALANINE AMINOTRANSFERASE 35 IU/L (10-60); AST ASPARTATE AMINOTRANSFERASE 39 IU/L (10-42); BUN - BLOOD UREA NITROGEN 17 mg/dL (6-20); CALCIUM 9.1 mg/dL (8.5-10.3); CARBON DIOXIDE - CO2 28 mmol/L (21-32); CHLORIDE 98 mmol/L (101-111); CHOL/HDL RATIO 2.8 (<5.0); CHOLESTEROL 116 mg/dL; CREATININE 1.1 mg/dL (0.6-1.2); GFR - MDRD 82 (>89); GLUCOSE 120 mg/dL (70-100); HDL CHOLESTEROL 42 mg/dL; IRON 63 ug/dL (45-182); LDL CHOLESTEROL,CALCULATED 21 mg/dL; LDL/HDL RATIO 0.5 (<3.6); POTASSIUM 3.6 mmol/L (3.5-5.0); SODIUM 138 mmol/L (135-145); TOTAL IRON BINDING CAPACITY 340 ug/dL (250-450); TOTAL PROTEIN 8.1 g/dL (6.7-8.2); TRANSFERRIN 243 mg/dL (180-329); TRIGLYCERIDES 264 mg/dL; VLDL CHOLESTEROL 53 mg/dL
[2021-02-11 14:28] LABS: FERRITIN 170.7 ng/mL (23.9-336.2)
== END 2021-02-11 23:59 | disposition home or self-care (01) ==
LOC: LAB.WCP 08:00
PROVIDERS: ATTEND Physician Assistant Medical
DX: E78.2 Mixed hyperlipidemia (principal); D64.9 Anemia, unspecified; Z12.5 Encounter for screening for malignant neoplasm of prostate
CPT/HCPCS: 36415; 80053; 80061; 82607; 82728; 82746; 83540; 83721; 84153; 84466; 85025

== ENCOUNTER 2021-02-20 12:07 | Outpatient (CLI) | payer MEDICAID ==
[2021-02-20] MEDS ORDERED: IOPAMIDOL-300 100 ML VIAL ONE (12:13)
--- NOTE | 2021-02-20 14:00 | CT Report ---
PROCEDURE: CHEST W INDICATIONS: DYSPNEA ON EXERTION CONTRAST: IV CONTRAST: Isovue 300 ml: 100 PO CONTRAST: *NO PO CONTRAST TECHNIQUE: After the administration of intravenous contrast, 5 mm thick sections acquired from the pulmonary api caty to the posterior costophrenic angles. 7 mm thick coronal MIP reformats were acquired. For radia tion dose reduction, the following was used: automated exposure control, adjustment of mA and/or kV according to patient size. COMPARISON: None. FINDINGS: CHEST: Lungs: Normal. Pleura: No pleural effusion or pneumothorax. Heart: Normal. Moderate coronary artery atherosclerosis. Lymph nodes: Normal. Thyroid: Negative Aorta: Normal Pulmonary arteries: Normal. Esophagus: Normal. Bones: Diffuse spondolytic changes and facet arthropathy. No compression fracture. Upper abdomen: Hepatic steatosis. Simple appearing right renal cyst. IMPRESSION: No acute disease. Moderate coronary atherosclerosis. Hepatic steatosis. Additional chronic and incidental findings as above. Reviewed by: Mark Shaw MD on 02/20/2021 1:59 PM PDT Approved by: Mark Shaw MD on 02/20/2021 1:59 PM PDT Station ID: [id number]
[2021-02-20] MEDS ORDERED: IOPAMIDOL-300 100 ML VIAL IVP ONE (14:08)
== END 2021-02-20 12:08 | disposition home or self-care (01) ==
LOC: DI 12:07
PROVIDERS: ATTEND Physician Assistant Medical
DX: R06.09 Other forms of dyspnea (principal); I25.10 Atherosclerotic heart disease of native coronary artery without angina pectoris; K76.0 Fatty (change of) liver, not elsewhere classified
CPT/HCPCS: 71260; Q9967

== ENCOUNTER 2021-03-01 10:10 | Outpatient (CLI) | payer MEDICAID ==
--- NOTE | 2021-03-01 10:41 | SLEEP CARE CONSULTATION ---
Information from patient questionnaire entered by Janki Atwood. I have reviewed and concur with the information entered by Janki Atwood. This document represents the service I personally performed and the decisions made by , Aliza Carrasco ARNP. History of Present Illness Service Date and Time: 03/01/2021 1010 Previous diagnosis: Severe, Obstructive Sleep Apnea-Hypopnea Syndrome AHI: 53.2 (in 2019) Reason for follow up: three month Equipment type: CPAP Equipment obtained from: Other ([facility]; getting supplies) Mask style: Full face Backup mask available: No (will keep old mask once replaced) Last cushion change: 2-3 months Prior sleep studies: Yes Year and Where: 2019 - [facility] Type of Sleep Study: Home sleep study HPI additional information: MARITO EDGE was diagnosed to have severe, AHI 53.2, obstructive sleep apnea- hypopnea syndrome and returned today for CPAP therapy three month follow-up. CPAP Compliance Data - Data Reviewed with Patient Average duration of nightly device use: 6 hr 36 min Compliance rate %: 84 (90 days) Current pressure setting (cmH2O): 11-14 Humidity settin Average residual AHI: 1.7 Subjective Missed days of use due to: reports: other (fell asleep without it) Patient concerns: reports: dry mouth, nose, throat (dry mouth). denies: aerophagia, mask discomfort, air blowing in eyes, mask leak noise, condensation in mask/hose, nasal congestion, epistaxis, other Observed to snore while using device: No Current pressure setting perceived as: comfortable On therapy, patient: reports: sleeping better, awakening more refreshed, being more awake and alert during the day, more rested overall. denies: drowsiness while driving Initial [place] Sleepiness Scale score: 7 (in 2019) Current [place] Sleepiness Scale score: 16 Allergies and Home Medications Home medication list reviewed: Yes (no changes) Review of Systems Review of systems same as previous: Yes (no changes) Physical Exam Heart Rate: 73 O2 Saturation: 98 Height: 5 ft 6 in Weight: 262 lb Body Mass Index: 42.3 BMI Classification: Morbidly Obese Impression and Plan 1. Obstructive Sleep Apnea-Hypopnea Syndrome, severe, with good treatment compliance and good apnea control. On CPAP therapy, the patient has better sleep quality and is more rested overall. His [place] has increased to 16/24 but he is sleeping on average 6.5 hours. Patient was counseled on the difference between meeting compliance and optimal use of CPAP. Patient encouraged to try to increase sleep time to 7-9 hours to obtain maximum benefit of treatment and reduced sleepiness. He is getting regular mouth dryness. Oral dryness can be reduced by adjusting humidity setting higher or heated hose lower or by adjusting both settings. Verbal instructions given on how to change humidity and heated hose settings with rationale explaining why to change. Patient voiced understanding and agreement with plan. Patient's apnea severity and rationale for treatment to reduce apnea, improve sleep quality and reduce cardiovascular and cerebrovascular events was reviewed. I also reviewed the benefit of consistent device use of CPAP for hypertension, cardiac disease, and gastric reflux. * Continue auto CPAP pressure at 11-14 cmH2O * Notify me if snoring with mask or feeling that the pressure is too much or too little * Attempt to lose weight, increase activity as able * Call this office if any problems using CPAP * Return for follow up in 6 months, or sooner if concerns arise Counseling Topics: Spare mask, Weight loss health impact, Activity level Visit Type: In Office Time Spent with Patient (minutes): 18 Provider Statement: I spent 100% of the Face to Face Visit with the patient with greater than 50% spent counseling the patient and coordination of care.
== END 2021-03-01 10:11 | disposition home or self-care (01) ==
LOC: SC 10:10
PROVIDERS: ATTEND Nurse Practitioner Family
DX: G47.33 Obstructive sleep apnea (adult) (pediatric) (principal); E66.01 Morbid (severe) obesity due to excess calories; Z68.41 Body mass index [BMI] 40.0-44.9, adult
CPT/HCPCS: 99212

== ENCOUNTER 2021-11-13 21:08 | Outpatient (CLI) | payer MEDICAID | END 2021-11-13 21:09 | disposition critical access hospital (66) | LOC: EMS 21:08 | DX: R06.02 Shortness of breath (principal) | CPT/HCPCS: A0425; A0429; A0999 ==

== ENCOUNTER 2021-11-13 21:28 | Emergency (ER) | payer MEDICAID ==
--- NOTE | 2021-11-13 22:29 | ED Physician Documentation ---
PD HPI DYSPNEA - Stated complaint Stated Complaint: SOA S/P BLACK MOLD EXPOSURE - Chief complaint Chief Complaint: Resp - History obtained from History obtained from: Patient - History of Present Illness Timing - onset: Enter time (21:00), Today Timing - onset during: Light activity Timing - details: Gradual onset (rapid but not abrupt) Pain level now: 0 Improved by: Inhaler/neb (albuterol given by EMS en route), Rest Worsened by: Exertion Associated symptoms: Wheezing. No: Fever, Cough, Chest pain / discomfort, Bilateral edema, Unilateral edema Similar symptoms before: Has not had sx before Recently seen: Not recently seen - Additional information Additional information: patient was cleaning a room at [employer] when he became dyspneic at approximately 9 PM tonight with wheezing and sensation of throat tightness (per patient). He says this happened shortly after a mattress was being moved that was then noted to have black mold (per patient) on its underside. Patient reports resolution of the throat tightness and near resolution of his dyspnea and wheezing after neb treatment given by medics. Denies h/o similar symptoms. He is COVID vaccinated without booster Review of Systems Constitutional: reports: Reviewed and negative Cardiac: reports: Reviewed and negative Respiratory: reports: Dyspnea, Wheezing. denies: Cough, Hemoptysis PD PAST MEDICAL HISTORY - Past Medical History Cardiovascular: Hypertension, High cholesterol Respiratory: None Endocrine/Autoimmune: None Psych: None Musculoskeletal: None - Past Surgical History Past Surgical History: Yes - Present Medications Home Medications: Ambulatory Orders Medication Instructions Recorded Confirmed Arm Brace [Elbow Strap] 1 each MC ONCE #0 each 06/05/14 Pravastatin Sodium 06/05/14 06/05/14 amLODIPine [Norvasc] 06/05/14 06/05/14 Albuterol Sulf [Ventolin Hfa 1 - 2 puffs INH Q4HR PRN #1 inhaler 11/13/21 Inhaler] predniSONE [Deltasone] 40 mg PO DAILY 2 Days #4 tablet 11/13/21 - Allergies Allergies/Adverse Reactions: Allergies Allergy/AdvReac Type Severity Reaction Status Date / Time lisinopril Allergy Hives Verified 11/13/21 23:01 - Social History Does the pt smoke?: No Smoking Status: Never smoker PD ED PE NORMAL - Vitals Vital signs reviewed: Yes - General General: Alert and oriented X 3, No acute distress, Well developed/nourished - HEENT HEENT: Moist mucous membranes, Pharynx benign, Other (no zev/intraoral swelling, airway is widely patent) - Cardiac Cardiac: RRR, No murmur - Respiratory Respiratory: No respiratory distress, Other (trace end-expiratory wheeze; good bilateral air movement) Results - Vitals Vitals: Oxygen O2 Source Room air PD MEDICAL DECISION MAKING - ED course Complexity details: considered differential, d/w patient ED course: c/o dyspnea, wheezing, sensation of throat constriction while working on cleaning someones room and noting significant black mold on a mattress that was being moved. He says the symptoms have nearly resolved by the time of this evaluation after neb tx by medics. He is in NAD and only has trace end- expiratory wheezing with 96-98% room air pulse ox. Discharged after PO prednisone and rx for prednisone and albuterol MDI. The prednisone is given due to the description of throat constriction, albeit resolved, as reexposure to whatever might have been a trigger for the episode could cause recurrence (which will be minimized with corticosteroid) Departure - Departure Disposition: 01 Home, Self Care Clinical Impression: Allergic reaction Qualifiers: Encounter type: initial encounter Qualified Code(s): T78.40XA - Allergy, unspecified, initial encounter Condition: Good Instructions: ED Reactive Airway Disease Follow-Up: Judi Wolfe PA-C [Primary Care Provider] - Prescriptions: Albuterol Sulf [Ventolin Hfa Inhaler] 1 - 2 puffs INH Q4HR PRN #1 inhaler PRN Reason: Shortness Of Air/Wheezing predniSONE [Deltasone] 40 mg PO DAILY 2 Days #4 tablet Comments: Prescriptions for albuterol and prednisone (steroid) have been electronically submitted to [facility] pharmacy in [place]. Discharge Date/Time: 11/13/21 23:08
[2021-11-13 22:34] VITALS: BP 159/97
[2021-11-13] MEDS: predniSONE 20 MG TABLET PO STA (23:00)
== END 2021-11-13 23:08 | disposition home or self-care (01) ==
LOC: EDUNIT# → ED 21:28 → SUPCPDRO 21:28 → ED 23:08
DX: T78.40XA Allergy, unspecified, initial encounter (principal); R06.09 Other forms of dyspnea; R06.2 Wheezing; I10 Essential (primary) hypertension
CPT/HCPCS: 99283; J7512

== ENCOUNTER 2022-03-18 07:46 | Outpatient (CLI) | payer MEDICAID ==
--- NOTE | 2022-03-18 16:39 | XRAY Report ---
PROCEDURE: Knee 4 View RT INDICATIONS: KNEE PAIN TECHNIQUE: 4 views of the right knee(s) were acquired. COMPARISON: None. FINDINGS: Bones: No fractures or dislocations. No suspicious bony lesions. Severe medial compartment arthriti s. Moderate patellofemoral compartment osteoarthritis. Mild lateral compartment osteoarthritis. Soft tissues: No joint effusion. No suspicious soft tissue calcifications. IMPRESSION: Right knee tricompartmental osteoarthritis as described above. Reviewed by: Joyce Gómez MD, PhD on 03/18/2022 4:37 PM PDT Approved by: Joyce Gómez MD, PhD on 03/18/2022 4:37 PM PDT Station ID: [id number]
== END 2022-03-18 23:59 | disposition home or self-care (01) ==
LOC: DI.WOS 07:46
PROVIDERS: ATTEND Physician Assistant Surgical
DX: M17.11 Unilateral primary osteoarthritis, right knee (principal)

== ENCOUNTER 2022-04-23 10:12 | Outpatient (CLI) | payer MEDICAID ==
[2022-04-23 12:15] LABS: ALBUMIN 3.9 g/dL (3.2-5.5); ALKALINE PHOSPHATASE 38 IU/L (42-121); ALT ALANINE AMINOTRANSFERASE 40 IU/L (10-60); AST ASPARTATE AMINOTRANSFERASE 40 IU/L (10-42); BUN - BLOOD UREA NITROGEN 13 mg/dL (6-20); CALCIUM 9.3 mg/dL (8.5-10.3); CARBON DIOXIDE - CO2 29 mmol/L (21-32); CHLORIDE 101 mmol/L (101-111); CHOL/HDL RATIO 2.4 (<5.0); CHOLESTEROL 116 mg/dL; GFR - MDRD 91 (>89); GLUCOSE 121 mg/dL (70-100); HDL CHOLESTEROL 48 mg/dL; LDL CHOLESTEROL,CALCULATED 28 mg/dL; LDL/HDL RATIO 0.6 (<3.6); POTASSIUM 3.9 mmol/L (3.5-5.0); SODIUM 137 mmol/L (135-145); TOTAL PROTEIN 7.7 g/dL (6.7-8.2); TRIGLYCERIDES 201 mg/dL; VLDL CHOLESTEROL 40 mg/dL
[2022-04-23 13:04] LABS: ESTIMATED AVERAGE GLUCOSE 148 mg/dL (70-100); HEMOGLOBIN A1c% 6.8 % (4.27-6.07)
== END 2022-04-23 10:13 | disposition home or self-care (01) ==
LOC: LAB.N 10:12
PROVIDERS: ATTEND Physician Assistant Medical
DX: E11.9 Type 2 diabetes mellitus without complications (principal)
CPT/HCPCS: 36415; 80053; 80061; 83036; 83721

== ENCOUNTER 2022-05-06 08:00 | Outpatient (CLI) | payer MEDICAID | END 2022-05-06 23:59 | disposition home or self-care (01) | LOC: LAB.N 08:00 | PROVIDERS: ATTEND Physician Assistant | DX: R31.9 Hematuria, unspecified (principal) | CPT/HCPCS: 87086 ==

== ENCOUNTER 2022-07-01 08:00 | Outpatient (CLI) | payer MEDICARE, MEDICAID ==
[2022-07-01 21:32] LABS: BASOPHILS # (AUTO) 0.1 10^3/uL (0.0-0.1); BASOPHILS % (AUTO) 0.8 %; EOSINOPHILS # (AUTO) 0.3 10^3/uL (0.0-0.7); EOSINOPHILS % (AUTO) 2.7 %; HCT - HEMATOCRIT 36.8 % (42.0-52.0); HGB - HEMOGLOBIN 12.7 g/dL (14.0-18.0); LYMPHOCYTES % (AUTO) 31.1 %; MEAN CORPUSCULAR HEMOGLOBIN 34.7 pg (27.0-31.0); MEAN CORPUSCULAR HGB CONC 34.5 g/dL (32.0-36.0); MEAN CORPUSCULAR VOLUME 100.5 fL (80.0-94.0); MEAN PLATELET VOLUME 9.6 fL (7.4-11.4); MONOCYTES # (AUTO) 0.8 10^3/uL (0.0-1.0); MONOCYTES % (AUTO) 8.2 %; NEUTROPHILS # (AUTO) 5.5 10^3/uL (1.5-6.6); NEUTROPHILS % (AUTO) 56.8 %; PLT - PLATELET COUNT 205 10^3/uL (130-450); RED BLOOD COUNT 3.66 10^6/uL (4.70-6.10); RED CELL DISTRIBUTION WIDTH 15.2 % (12.0-15.0); WHITE BLOOD COUNT 9.7 x10^3/uL (4.8-10.8)
[2022-07-01 21:43] LABS: CALCIUM 8.9 mg/dL (8.5-10.3); POTASSIUM 3.8 mmol/L (3.5-5.0)
[2022-07-01 21:53] LABS: BILIRUBIN,URINE NEGATIVE (NEGATIVE); GLUCOSE, URINE (UA) NEGATIVE (NEGATIVE); KETONES,URINE (UA) NEGATIVE (NEGATIVE); LEUKOCYTE ESTERASE, URINE SMALL (NEGATIVE); NITRITE,URINE NEGATIVE (NEGATIVE); OCCULT BLOOD,URINE LARGE (NEGATIVE); PROTEIN,URINE 30 mg/dL (NEGATIVE); UROBILINOGEN,URINE 0.2 (NORMAL) E.U./dL (NORMAL)
[2022-07-01 21:55] LABS: CLARITY,URINE HAZY (CLEAR)
[2022-07-01 22:15] LABS: BACTERIA,URINE Many /HPF (None Seen); RBC,URINE TNTC /HPF (0-5); SQUAMOUS EPITHELIAL CELL,UR FEW Squamous (<= Few)
== END 2022-07-01 23:59 | disposition home or self-care (01) ==
LOC: LAB.N 08:00
PROVIDERS: ATTEND Physician Assistant Medical
DX: R31.9 Hematuria, unspecified (principal)
CPT/HCPCS: 36415; 80048; 81001; 85025; 87086

== ENCOUNTER 2022-07-01 21:42 | Emergency (ER) | payer MEDICARE, MEDICAID ==
[2022-07-01 23:45] LABS: BILIRUBIN,URINE NEGATIVE (NEGATIVE); GLUCOSE, URINE (UA) NEGATIVE (NEGATIVE); KETONES,URINE (UA) NEGATIVE (NEGATIVE); LEUKOCYTE ESTERASE, URINE MODERATE (NEGATIVE); NITRITE,URINE NEGATIVE (NEGATIVE); OCCULT BLOOD,URINE LARGE (NEGATIVE); PH,URINE 5.5 PH (5.0-7.5); PROTEIN,URINE TRACE mg/dL (NEGATIVE); UROBILINOGEN,URINE 0.2 (NORMAL) E.U./dL (NORMAL)
[2022-07-01 23:46] LABS: CLARITY,URINE SL. CLOUDY (CLEAR)
[2022-07-01 23:52] LABS: BACTERIA,URINE Moderate /HPF (None Seen); RBC,URINE TNTC /HPF (0-5); SQUAMOUS EPITHELIAL CELL,UR FEW Squamous (<= Few)
[2022-07-01 23:53] LABS: AMORPHOUS SEDIMENT,UR Few /LPF
[2022-07-02] MEDS ORDERED: CEFPODOXIME PROXETIL 100 MG TABLET PO STA (01:07)
--- NOTE | 2022-07-02 01:08 | ED Physician Documentation ---
History of Present Illness - Stated complaint Stated Complaint: MALE /BLEEDING - Chief complaint Chief Complaint: General - History obtained from History obtained from: Patient - Additonal information Additional information: 61-year-old man on aspirin 81 and Plavix 75 presents with asymptomatic hematuria with multiple episodes occurring in the past day or so. Patient was seen in walk-in clinic and told to come here if he had worsening bleeding. He states that 2 months ago he had a similar episode and they were unable to uncover the cause. Endorses some mild irritation while urinating but denies fever, abdominal pain, back pain, nausea.No history of kidney stones Review of Systems Ten Systems: 10 systems reviewed and negative Constitutional: denies: Fever GI: denies: Abdominal Pain, Nausea : reports: Dysuria, Hematuria. denies: Frequency PD PAST MEDICAL HISTORY - Past Medical History Past Medical History: Yes Cardiovascular: Hypertension, High cholesterol Respiratory: None Endocrine/Autoimmune: None Psych: None Musculoskeletal: None - Past Surgical History Past Surgical History: Yes - Present Medications Home Medications: Ambulatory Orders Medication Instructions Recorded Confirmed Aspirin [Aspirin EC] 81 mg PO DAILY 02/17/22 02/17/22 Atorvastatin Calcium [Lipitor] 80 mg PO QPM 02/17/22 02/17/22 Clopidogrel [Plavix] 75 mg PO DAILY 02/17/22 02/17/22 Finasteride [Proscar] 5 mg PO DAILY 02/17/22 02/17/22 Isosorbide Mononitrate [Isosorbide 60 mg PO BID 02/17/22 02/17/22 Mononitrate ER] Losartan Potassium [Cozaar] 100 mg PO DAILY 02/17/22 02/17/22 Nitroglycerin [Nitrostat] 0.4 mg SL [id number] 02/17/22 02/17/22 Prazosin [Minipress] 1 mg PO DAILY 02/17/22 02/17/22 Torsemide 20 mg PO DAILY 02/17/22 02/17/22 amLODIPine [Norvasc] 5 mg PO DAILY 02/17/22 02/17/22 Cefpodoxime Proxetil [Vantin] 200 mg PO Q12H #28 tablet 07/02/22 Saccharomyces Boulardii [Florastor] 250 mg PO BIDWM #28 tab 07/02/22 - Allergies Allergies/Adverse Reactions: Allergies Allergy/AdvReac Type Severity Reaction Status Date / Time lisinopril Allergy Hives Verified 07/01/22 22:04 - Social History Does the pt smoke?: No Smoking Status: Never smoker Does the pt drink ETOH?: No - Immunizations Immunizations are current?: Yes PD ED PE NORMAL - Vitals Vital signs reviewed: Yes - General General: Alert and oriented X 3, No acute distress, Well developed/nourished - HEENT HEENT: Atraumatic, PERRL, EOMI - Neck Neck: Supple, no meningeal sign - Cardiac Cardiac: RRR - Respiratory Respiratory: No respiratory distress, Clear bilaterally - Abdomen Abdomen: Non tender, Non distended - Back Back: No CVA TTP - Derm Derm: Normal color, Warm and dry - Neuro Neuro: Alert and oriented X 3 - Psych Psych: Normal mood, Normal affect Results - Vitals Vitals: Vital Signs - 24 hr 07/01/22 07/02/22 21:57 00:04 Temperature 36.7 C Heart Rate 97 88 Respiratory 16 16 Rate Blood Pressure 135/89 H 133/85 H O2 Saturation 99 98 Oxygen O2 Source Room air - Labs Labs: Laboratory Tests 07/01/22 23:40 Urine Color DARK YELLOW Urine Clarity SL. CLOUDY Urine pH 5.5 Ur Specific [place] 1.025 Urine Protein TRACE Urine Glucose (UA) NEGATIVE Urine Ketones NEGATIVE Urine Occult Blood LARGE H Urine Nitrite NEGATIVE Urine Bilirubin NEGATIVE Urine Urobilinogen 0.2 (NORMAL) Ur Leukocyte Esterase MODERATE H Urine RBC TNTC H Urine WBC 11-25 H Ur Squamous Epith Cells FEW Squamous Amorphous Sediment Few Urine Bacteria Moderate H Ur Microscopic Review INDICATED Urine Culture Comments INDICATED PD MEDICAL DECISION MAKING - ED course ED course: 61-year-old man presents with asymptomatic hematuria, found to have urinary tract infection on urinalysis. He does not have any unilateral flank pain consistent with kidney stones therefore CT of the abdomen and pelvis was canceled. Antibiotics prescribed and patient will follow-up with his primary doctor for referral to urology. Return precautions given. Departure - Departure Disposition: 01 Home, Self Care Clinical Impression: Hematuria, UTI (urinary tract infection) Condition: Stable Instructions: ED UTI Cystitis Male Prescriptions: Saccharomyces Boulardii [Florastor] 250 mg PO BIDWM #28 tab Cefpodoxime Proxetil [Vantin] 200 mg PO Q12H #28 tablet Comments: You were seen in the emergency department for blood in the urine. Urine test shows that this may be caused by infection, so you should take antibiotics. We will culture your urine, the results should be done in 48-72 hours. If an antibiotic change is necessary we will call you. Return if worse in the meantime, especially if you develop increasing flank pain, fevers, or cannot keep down the medication. Please follow-up with your primary doctor for referral to urology for possible cystoscopy. Return to the emergency department if you experience fever, new or worsening symptoms or other concerns.
[2022-07-02 01:19] VITALS: BP 136/83
== END 2022-07-02 01:27 | disposition home or self-care (01) ==
LOC: ED 21:42
DX: N39.0 Urinary tract infection, site not specified (principal); R31.9 Hematuria, unspecified
CPT/HCPCS: 81001; 99283; 99284; A9270; 36415; 80048; 81003; 85025; 87086

== ENCOUNTER 2022-07-02 15:14 | Outpatient (CLI) | payer MEDICARE, MEDICAID ==
--- NOTE | 2022-07-02 18:00 | CT Report ---
PROCEDURE: IVP INDICATIONS: HEMATURIA CONTRAST: IV CONTRAST: Optiray 320 ml: 140 PO CONTRAST: *NO PO CONTRAST TECHNIQUE: After the administration of oral and intravenous contrast, 5 mm thick sections acquired from the diap hragms to the symphysis. 5 mm thick coronal and sagittal reformats were acquired. For radiation dos e reduction, the following was used: automated exposure control, adjustment of mA and/or kV accordin g to patient size. COMPARISON: None. FINDINGS: Image quality: Excellent. Lung bases: Lung bases are clear. Heart size is normal. Urinary system: Both kidneys are normal in size and enhancement. There are small right-sided renal c ysts present and a 11.7 cm left renal cyst. Contrast-filled renal calyces are normal in morphology. Contrast filled portions of both ureters are normal in caliber. There is a mildly enlarged prostate g land present and there is mild diffuse bladder wall thickening present.. Solid organs: Liver and spleen are normal in size and enhancement. Gallbladder Biliary system is non dilated. Pancreas enhances normally. No adrenal nodules. Peritoneum and bowel: Bowel loops demonstrate normal wall thickness and caliber. No free fluid or a ir. Nodes and vessels: No retroperitoneal or mesenteric adenopathy by size criteria. Aorta and inferior vena cava are normal in size. Abdominal wall: No ventral hernias. Pelvis: No pathologic free pelvic fluid. No inguinal hernias or adenopathy. Bones: No suspicious bony lesions. No vertebral body compression fractures. IMPRESSION: 1. Mildly enlarged prostate gland extending into the bladder base with associated mild diffuse bladde r wall thickening suggesting some degree of bladder obstruction. 2. Bilateral renal cysts. 3. The renal cyst involving the lower pole of the patient's left kidney measures 11.7 cm in maximal d imension. 4. Coronary artery atherosclerotic calcifications. Reviewed by: Zain Covarrubias MD on 07/02/2022 5:59 PM PDT Approved by: Zain Covarrubias MD on 07/02/2022 5:59 PM PDT Station ID: [id number]
== END 2022-07-02 15:15 | disposition home or self-care (01) ==
LOC: DI 15:14
PROVIDERS: ATTEND Physician Assistant Medical
DX: N40.1 Benign prostatic hyperplasia with lower urinary tract symptoms (principal); N28.1 Cyst of kidney, acquired; R31.0 Gross hematuria
CPT/HCPCS: 74178; Q9967

== ENCOUNTER 2022-11-18 09:56 | Outpatient (CLI) | payer MEDICARE ==
[2022-11-18 12:22] LABS: ALBUMIN 3.8 g/dL (3.2-5.5); ALBUMIN/GLOBULIN RATIO 0.9 (1.0-2.2); ALKALINE PHOSPHATASE 60 IU/L (42-121); ALT ALANINE AMINOTRANSFERASE 49 IU/L (10-60); AST ASPARTATE AMINOTRANSFERASE 52 IU/L (10-42); BUN - BLOOD UREA NITROGEN 17 mg/dL (6-20); CALCIUM 8.9 mg/dL (8.5-10.3); CARBON DIOXIDE - CO2 27 mmol/L (21-32); CHLORIDE 95 mmol/L (101-111); CHOL/HDL RATIO 2.3 (<5.0); CHOLESTEROL 101 mg/dL; GFR - MDRD 91 (>89); GLUCOSE 155 mg/dL (70-100); HDL CHOLESTEROL 43 mg/dL; LDL CHOLESTEROL,CALCULATED 7 mg/dL; LDL/HDL RATIO 0.2 (<3.6); SODIUM 136 mmol/L (135-145); TOTAL PROTEIN 8.2 g/dL (6.7-8.2); TRIGLYCERIDES 254 mg/dL; VLDL CHOLESTEROL 51 mg/dL
[2022-11-18 12:23] LABS: ESTIMATED AVERAGE GLUCOSE 197 mg/dL (70-100); HEMOGLOBIN A1c% 8.5 % (4.27-6.07)
== END 2022-11-18 09:57 | disposition home or self-care (01) ==
LOC: LAB.N 09:56
PROVIDERS: ATTEND Physician Assistant Medical
DX: E11.9 Type 2 diabetes mellitus without complications (principal)
CPT/HCPCS: 36415; 80053; 80061; 83036; 83721

== ENCOUNTER 2022-11-27 13:33 | Outpatient (CLI) | payer MEDICARE ==
[2022-11-27 14:05] VITALS: BP 128/72
--- NOTE | 2022-11-27 14:05 | SLEEP CARE CONSULTATION ---
Information from patient questionnaire entered by Demario Rondon. I have reviewed and concur with the information entered by Demario Rondon. This document represents the service I personally performed and the decisions made by me, Aliza Carrasco ARNP. History of Present Illness Service Date and Time: 11/27/2022 1333 Previous diagnosis: Severe, Obstructive Sleep Apnea-Hypopnea Syndrome AHI: 53.2 (in 2019) Reason for follow up: annual Equipment type: CPAP (RESMED Airsense 10, s/u 07/2020) Equipment obtained from: Other ([facility]; getting supplies) Mask style: Full face Backup mask available: Yes (old mask) Prior sleep studies: Yes Year and Where: 2019 - [email or web address] Type of Sleep Study: Home sleep study HPI additional information: MARITO EDGE was diagnosed to have severe, AHI 53.2, obstructive sleep apnea-h ypopnea syndrome and returned today for CPAP therapy annual follow-up. Sleep Study - Results Type of Sleep Study: Home sleep study Prior sleep studies: Yes Year and Where: 2019 - [email or web address] CPAP Compliance Data - Data Reviewed with Patient Average duration of nightly device use: 6 HRS 47 [place] Compliance rate %: 74 (05/30/22-11/25/22; 156/180 days used) Current pressure setting (cmH2O): 11-14 Average residual AHI: 3.6 Central apnea: 0.0 Obstructive apnea: 0.3 Average large leak: 5.5 LPM Subjective Missed days of use due to: reports: other (fall asleep without it) Patient concerns: reports: mask discomfort (sometimes pinches on face and has to reset/readjust). denies: aerophagia, air blowing in eyes, mask leak noise, condensation in mask/hose, nasal congestion, dry mouth, nose, throat, epistaxis Observed to snore while using device: No (sometimes per his who is not living with him) Current pressure setting perceived as: comfortable On therapy, patient: reports: sleeping better, awakening more refreshed, being more awake and alert during the day, more rested overall. denies: drowsiness while driving Initial Milner Sleepiness Scale score: 7 (in 2019) Current Milner Sleepiness Scale score: 6 (11/27/22) Allergies and Home Medications Drug allergies reviewed: Yes (lisinopril) Home medication list reviewed: Yes (no changes) Review of Systems Review of systems same as previous: Yes (no changes) Physical Exam Vital signs obtained and entered by: DEMARIO Armenta MA Blood Pressure: 128/72 (LEFT ARM) Cuff size: regular Heart Rate: 88 O2 Saturation: 97 Height: 5 ft 6 in Weight: 253 lb 9.6 oz Weight change since last visit: 9 lb loss Body Mass Index: 40.9 BMI Classification: Morbidly Obese Impression and Plan 1. Obstructive Sleep Apnea-Hypopnea Syndrome, severe, with good treatment compliance and good apnea control. On CPAP therapy, the patient has better sleep quality and is more rested overall. Patient has come in to get a prescription for his supplies updated with his DME. I will have a new one faxed off later today so he can get his supplies. He voiced understanding. Patient has significant improvement of their sleep apnea and are satisfied with current CPAP therapy. Patient denies problems with oral dryness, nasal congestion, epistaxis, skin irritation or aerophagia. Patient's apnea severity and rationale for treatment to reduce apnea, improve sleep quality and reduce cardiovascular and cerebrovascular events was reviewed. I also reviewed the benefit of consistent device use of CPAP for hypertension, cardiac disease and gastric reflux. 2. Obesity, unspecified. Currently patients BMI is 40.9. He lost 9 pounds since his last visit. He states he is going to the gym 3 times a week and trying to eat better. Obesity increases the risk of apnea, CPAP pressure requirements and overall health risks especially cardiovascular and diabetes. Thus patient is advised to continue to try to lose weight. * Continue auto CPAP pressure at 11-14 cmH2O * Update supplies * Notify me if snoring with mask or feeling that the pressure is too much or too little * Attempt to lose weight * Call this office if any problems using CPAP * Return for follow up in 1 year, or sooner if concerns arise Counseling Topics: Spare mask, Weight loss health impact Visit Type: In Office Time Spent with Patient (minutes): 20 Provider Statement: I spent 100% of the Face to Face Visit with the patient with greater than 50% spent counseling the patient and coordination of care.
== END 2022-11-27 13:34 | disposition home or self-care (01) ==
LOC: SC 13:33
PROVIDERS: ATTEND Nurse Practitioner Family
DX: G47.33 Obstructive sleep apnea (adult) (pediatric) (principal); E66.01 Morbid (severe) obesity due to excess calories; Z68.41 Body mass index [BMI] 40.0-44.9, adult
CPT/HCPCS: 99213; G0463; 99212

== ENCOUNTER 2022-12-02 14:58 | Outpatient (CLI) | payer MEDICARE ==
--- NOTE | 2022-12-02 19:13 | XRAY Report ---
PROCEDURE: Hand 3 View LT INDICATIONS: LEFT HAND PAIN TECHNIQUE: 3 views of the hand(s) acquired. COMPARISON: None FINDINGS: Bones: No fractures or dislocations. No suspicious bony lesions. Soft tissues: Diffuse atherosclerotic vascular calcification noted. IMPRESSION: Small vessel calcified atherosclerosis. Otherwise unremarkable left hand radiographs Reviewed by: Amador Pack MD on 12/02/2022 6:12 PM AKST Approved by: Amador Pack MD on 12/02/2022 6:12 PM AKST Station ID: [id number]
== END 2022-12-02 15:02 | disposition home or self-care (01) ==
LOC: DI.WOS 14:58
PROVIDERS: ATTEND Orthopaedic Surgery
DX: I70.208 Unspecified atherosclerosis of native arteries of extremities, other extremity (principal)

== ENCOUNTER 2023-02-12 09:22 | Outpatient (CLI) | payer MEDICARE, MEDICAID ==
[2023-02-12 12:40] LABS: CALCIUM 8.5 mg/dL (8.5-10.3); CREATININE 0.9 mg/dL (0.6-1.2); POTASSIUM 3.7 mmol/L (3.5-5.0)
[2023-02-12 12:41] LABS: ESTIMATED AVERAGE GLUCOSE 157 mg/dL (70-100); HEMOGLOBIN A1c% 7.1 % (4.27-6.07)
== END 2023-02-12 09:23 | disposition home or self-care (01) ==
LOC: LAB.N 09:22
PROVIDERS: ATTEND Physician Assistant Medical
DX: E11.9 Type 2 diabetes mellitus without complications (principal)
CPT/HCPCS: 36415; 80048; 83036

== ENCOUNTER 2023-06-19 08:48 | Outpatient (CLI) | payer MEDICARE, MEDICAID ==
[2023-06-19 13:07] LABS: ALBUMIN 3.9 g/dL (3.2-5.5); ALBUMIN/GLOBULIN RATIO 1.2 (1.0-2.2); ALKALINE PHOSPHATASE 35 IU/L (42-121); ALT ALANINE AMINOTRANSFERASE 25 IU/L (10-60); AST ASPARTATE AMINOTRANSFERASE 32 IU/L (10-42); BILIRUBIN,TOTAL 0.5 mg/dL (0.2-1.0); BUN - BLOOD UREA NITROGEN 14 mg/dL (6-20); CALCIUM 9.1 mg/dL (8.5-10.3); CARBON DIOXIDE - CO2 29 mmol/L (21-32); CHLORIDE 99 mmol/L (101-111); CHOL/HDL RATIO 3.1 (<5.0); CHOLESTEROL 132 mg/dL; GFR - MDRD 91 (>89); GLUCOSE 147 mg/dL (74-104); HDL CHOLESTEROL 43 mg/dL; POTASSIUM 3.8 mmol/L (3.5-4.5); SODIUM 136 mmol/L (135-145); TOTAL PROTEIN 7.1 g/dL (6.4-8.9); TRIGLYCERIDES 519 mg/dL (48-352)
[2023-06-19 13:28] LABS: ESTIMATED AVERAGE GLUCOSE 166 mg/dL (70-100); HEMOGLOBIN A1c% 7.4 % (4.27-6.07)
[2023-06-19 14:59] LABS: LDL CHOLESTEROL,DIRECT 47 mg/dL (75-193); LDLD/HDL RATIO 1.1 (<3.6)
== END 2023-06-19 08:49 | disposition home or self-care (01) ==
LOC: LAB.N 08:48
PROVIDERS: ATTEND Physician Assistant Medical
DX: E11.9 Type 2 diabetes mellitus without complications (principal)
CPT/HCPCS: 36415; 80053; 80061; 83036; 83721

== ENCOUNTER 2024-01-08 13:05 | Outpatient (CLI) | payer MEDICARE, MEDICAID ==
[2024-01-08 18:42] LABS: BUN - BLOOD UREA NITROGEN 18 mg/dL (6-20); CALCIUM 9.6 mg/dL (8.5-10.3); CARBON DIOXIDE - CO2 27 mmol/L (21-32); CHLORIDE 99 mmol/L (101-111); CHOL/HDL RATIO 2.2 (<5.0); CHOLESTEROL 127 mg/dL; CREATININE 1.1 mg/dL (0.6-1.3); GFR - MDRD 81 (>89); GLUCOSE 187 mg/dL (74-104); HDL CHOLESTEROL 58 mg/dL; LDL CHOLESTEROL,CALCULATED 25 mg/dL; LDL/HDL RATIO 0.4 (<3.6); POTASSIUM 3.7 mmol/L (3.5-4.5); SODIUM 137 mmol/L (135-145); TRIGLYCERIDES 219 mg/dL (48-352); VLDL CHOLESTEROL 44 mg/dL
[2024-01-08 20:47] LABS: ESTIMATED AVERAGE GLUCOSE 143 mg/dL (70-100); HEMOGLOBIN A1c% 6.6 % (4.27-6.07)
== END 2024-01-08 13:06 | disposition home or self-care (01) ==
LOC: LAB.N 13:05
PROVIDERS: ATTEND Physician Assistant Medical
DX: E11.9 Type 2 diabetes mellitus without complications (principal); Z12.5 Encounter for screening for malignant neoplasm of prostate
CPT/HCPCS: 36415; 80048; 80061; 83036; G0103; 83721; 84153

== ENCOUNTER 2024-03-17 08:30 | Outpatient (CLI) | payer MEDICARE, MEDICAID ==
--- NOTE | 2024-03-17 12:54 | XRAY Report ---
PROCEDURE: Chest 2V INDICATIONS: ACUTE COUGH TECHNIQUE: 2 views of the chest were acquired. COMPARISON: Chest radiograph 12/28/2020 FINDINGS: Surgical changes and devices: None. Lungs and pleura: No pleural effusions or pneumothorax. Lungs are clear. Mediastinum: Mediastinal contours appear normal. Heart size is normal. Bones and chest wall: No suspicious bony lesions. Overlying soft tissues appear unremarkable. IMPRESSION: No acute cardiopulmonary abnormality. Reviewed by: Los Harper MD on 03/17/2024 12:53 PM PDT Approved by: Los Harper MD on 03/17/2024 12:53 PM PDT Station ID: [id number]
== END 2024-03-17 08:45 | disposition home or self-care (01) ==
LOC: DI.N 08:30
PROVIDERS: ATTEND Physician Assistant Medical
DX: R05.1 Acute cough (principal)

== ENCOUNTER 2024-05-10 08:00 | Outpatient (CLI) | payer MEDICARE, MEDICAID | END 2024-05-10 23:59 | disposition home or self-care (01) | LOC: LAB.N 08:00 | PROVIDERS: ATTEND Physician Assistant Medical | DX: N30.00 Acute cystitis without hematuria (principal) | CPT/HCPCS: 87086 ==

== ENCOUNTER 2024-06-02 09:35 | Outpatient (CLI) | payer MEDICARE, MEDICAID ==
[2024-06-02 12:22] LABS: ESTIMATED AVERAGE GLUCOSE 154 mg/dL (70-100)
[2024-06-02 13:11] LABS: CALCIUM 8.8 mg/dL (8.5-10.3); CREATININE 1.1 mg/dL (0.6-1.3); POTASSIUM 3.7 mmol/L (3.5-4.5)
== END 2024-06-02 09:36 | disposition home or self-care (01) ==
LOC: LAB.N 09:35
PROVIDERS: ATTEND Physician Assistant Medical
DX: E11.9 Type 2 diabetes mellitus without complications (principal)
CPT/HCPCS: 36415; 80048; 83036

== ENCOUNTER 2024-06-13 11:44 | Outpatient (CLI) | payer MEDICARE, MEDICAID ==
--- NOTE | 2024-06-13 15:23 | CT Report ---
PROCEDURE: Lung Cancer Screen INDICATIONS: SCREENING FOR LUNG CA TECHNIQUE: A CT scan of the chest was performed. Intravenous contrast media was not administered. Images were re corded and evaluated at appropriate window settings. Reformats: axial MIP of the chest, coronal and s agittal. For radiation dose reduction, the following was used: automated exposure control, adjustment of mA and/or kV according to patient size. COMPARISON: 02/20/2021 FINDINGS: Image quality: Excellent. Prior cancer history: Unknown Lungs and pleura: No pleural effusions. No pneumothorax. No suspicious pulmonary nodules which requi re follow up. Mediastinum: Heart size is normal. No pericardial effusion. No large vessel abnormality. No mediastin al adenopathy by size criteria. Three vessel coronary artery calcifications. Chest wall and lower neck: Thyroid is unremarkable. No axillary or supraclavicular adenopathy by size . Bones: No aggressive osseous abnormality. Upper Abdomen: Unremarkable. IMPRESSION: Lung RAD: 1 - Negative. Recommendation: Continue annual screening in 12 Months with LDCT Non-Lung Significant Findings: Coronary Arterial Calcification - Moderate or Severe. Consider cardiol ogy referral. Reviewed by: Mireya Richter MD on 06/13/2024 3:22 PM PDT Approved by: Mireya Richter MD on 06/13/2024 3:22 PM PDT Station ID: [id number]
== END 2024-06-13 11:45 | disposition home or self-care (01) ==
LOC: DI 11:44
PROVIDERS: ATTEND Physician Assistant Medical
DX: Z12.2 Encounter for screening for malignant neoplasm of respiratory organs (principal); I25.10 Atherosclerotic heart disease of native coronary artery without angina pectoris

== ENCOUNTER 2024-07-11 08:00 | Outpatient (CLI) | payer MEDICARE, MEDICAID | END 2024-07-11 23:59 | disposition home or self-care (01) | LOC: LAB.N 08:00 | PROVIDERS: ATTEND Physician Assistant | DX: J06.9 Acute upper respiratory infection, unspecified (principal) ==